=== PATIENT | male | born 2000 | race Caucasian/White ===

== ENCOUNTER 2025-02-25 19:16 | Emergency (ER) | payer OTHER, SELFPAY ==
[2025-02-25 19:32] VITALS: BP 133/84; PULSE 71; RESP 17; TEMP 36.6; O2SAT 99; BMI 23.4
--- NOTE | 2025-02-25 20:00 | CRLHL7_ITS ---
For Patients: As a result of the Century Cures Act, medical imaging exams and procedure reports are released immediately into your electronic medical record. You may view this report before your referring provider. If you have questions, please contact your health care provider. INDICATION: Neck pain. Trauma. TECHNIQUE: Non-contrast axial CT of the cervical spine with coronal and sagittal reconstructions. No comparisons. FINDINGS: The overall stature and alignment of the cervical spine is within normal limits. Prevertebral soft tissues, cervical airway, dens and lateral masses are within normal limits. No evidence of bony fragments narrowing the central canal or visualized neural foramina. Central canal and neural foramina appear patent throughout the visualized cervical spine. IMPRESSION: No radiographic evidence of acute osseous injury. Please note that all CT scans at this facility use dose modulation, iterative reconstruction, and/or weight-based dosing when appropriate to reduce radiation dose to as low as reasonably achievable. Dictated by Chip Pace MD @ 02/25/2025 8:29:10 PM (Electronically Signed)
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
--- OUTSIDE RECORDS SUMMARY | 2025-02-25 21:03 | XMS_ITS | Clinical Summary ---
Author Organization [facility] Address [address] [place] [address] Care Team Providers Care Library Page Name Role Phone Dwayne Abdullahi MD Primary Care Provider [phone] Source Comments This disclosure is being made pursuant to the [employer] program and maynot contain all information available regarding this patient.[facility] Allergies No known active allergies Medications certavite w/antioxidants TABS Take 1 tablet by mouth daily. Active Cholecalciferol (VITAMIN D-3 PO) Take 1 capsule by mouth daily. Active Amino Acid Infusion (AMINO ACID IV) Inject 1 capsule into the vein daily. Active Active Problems Problem Noted Date Diagnosed Date Attention deficit hyperactivity disorder (ADHD) 08/23/2024 Beta-thalassemia 09/08/2021 Overactive child 09/08/2021 Encounters Date Type Department Care Team Description 12/11/2024 12:50 PM CDT - 12/11/2024 11:59 PM CDT Hospital Encounter [facility] [address], [phone] Encounter for drug screening Discharge Disposition: Home - Discharge to Home or Self Care 12/11/2024 Transcribe Orders [facility] [address] [place] [address], [phone] Dwayne Abdullahi MD Encounter for drug screening (Primary Dx) 11/30/2024 Results Follow-Up [facility] [place] [address] [place] [id number] Josue Conway MD CBC and differential, Lipid panel, Hepatitis C antibody, Additional followed-up results: 2 11/28/2024 9:13 AM CDT - 11/28/2024 11:59 PM CDT Hospital Encounter [facility] [address] [place] [address], [phone] Beta thalassemia trait; Lipid screening; Need for hepatitis C screening test; Other fatigue Discharge Disposition: Home - Discharge to Home or Self Care 11/28/2024 8:15 AM CDT Clinical Support [facility] [address] [place] [address] Gloria Turk RN Screening due (Primary Dx) 11/27/2024 Travel from Last 3 Months Immunizations Immunization Administration Dates Next Due DTaP, unspecified formulation 02/08/2007 ,06/15/2004,05/15/2003,08/10,2002 Hepatitis A, unspecified formulation 09/11/2005, 02/18/2005 Hepatitis B, unspecified formulation 02/16/2003, 2002,2002 HiB PRP-T 02/16/2006,05/15/2003,2002 Human Papillomavirus, Unspec ified Formulation 04/07/2016,12/05/2015,10/01/2015 Influenza, inactivated, quad rivalent, ALL AGES 6 months and older, single dose syringe/vial 04/24/2019 LIVE Fnfiern-Xkgml-Wbjnbdm ( M-M-R II) MMR 02/08/2007,02/16/2003 LIVE Varicella (Varivax) JEANETTE 12/21/2007,02/17/20 03 Meningococcal Conjugate (Men actra) MCV4 MenACWY-D 03/08/2018,02/13/2014 Pneumococcal Conjugate-13 (P revnar 13) PCV13 01/30/2005 Polio (Ipol) IPV 02/08/2007,2002, 2 Tdap 02/13/2014 Tetanus and Diphtheria (Tenivac) Td 05/28/2022 Family History Medical History Relation Name Comments Thyroid disease Father beta thalessemia trait Father Heart disease Maternal Grandfather Melanoma Maternal Grandmother Thyroid disease Paternal Grandmother beta thalassemia trait Paternal Grandmother Relation Name Status Comments Father Maternal Grandfather Maternal Grandmother Paternal Grandmother Social History Tobacco Use Types Packs/Day Years Used Date Smoking Tobacco: Never Smokeless Tobacco: Never Tobacco Cessation:Counseling Given: Yes Alcohol Use Standard Drinks/Week Comments Yes 2 (1 standard drink = 0.6 oz pur e alcohol) PHQ-2 Answer Date Recorded PHQ-2 Total Score 0 11/24/2024 Exercise Vital Sign Answer Date Recorde d On average, how many days pe r week do you engage in moderate to strenuous exercise (like a brisk walk)? 7 days 11/24/2024 On average, how many minutes do you engage in exercise at this level? 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 Gender Identity Not on file Sexual Orientation Not on file Last Filed Vital Signs Vital Sign Reading Time Taken Comments Blood Pressure 120/72 11/24/2024 1:12 PM CDT Pulse 64 11/24/2024 1:12 PM CDT Temperature 36.6 C (97.8 F) 11/24/2024 1:12 PM CDT Respiratory Rate 18 11/24/2024 1:12 PM CDT Oxygen Saturation 98% 11/24/2024 1:12 PM CDT Inhaled Oxygen Concentration - - Weight 63.7 kg (140 lb 6.4 oz) 11/24/2024 1:12 P M CDT Height 177.8 cm (5' 10) 11/24/2024 1:12 PM CDT Body Mass Index 20.15 11/24/2024 1:12 PM CDT Plan of Treatment Health Maintenance Due Date Last Done Comments Pneumococcal Vaccines 0-49 yo (2 of 3 - PPSV23, PCV20, or PCV21) 03/27/2005 01/30/2005 Meningococcal B Vaccine (1 of 4 - Increased Risk) 02/11/2012 Meningococcal Conjugate Vaccine (3 - Risk 2-dose series) 03/08/2023 03/08/2018, 02/13/2014 COVID-19 Vaccine (1 - season) 2024 Influenza Vaccine (#1) 2025 04/24/2019 Annual Wellness Visit 11/24/2025 11/24/2024 Lab-Cholesterol Screening 11/28/2029 11/28/2024 Tetanus/Pertussis Vaccine Teen/Adult (8 - Td or Tdap) 05/28/2032 05/28/2022, 02/13/2014, 02/08/2007, Additional history exists Zoster (Shingles) Vaccine 50+ (1 of 2) 02/11/2052 RSV Adult (1 - 1-dose 75+ series) 2077 Hepatitis B Vaccine Completed 02/16/2003, 2002, 2002 Hepatitis A Vaccine Completed 09/11/2005, HIB Vaccine Completed 02/16/2006, 04/28, 2002 IPV Vaccine Completed 02/08/2007, 07/29, 2002 HPV Vaccine (9-26yo & Shared Decision 27-45yo) Completed 04/07/2016, 12/05/2015, 10/01/2015 Lab-Hepatitis C Screening Completed 11/28/2024 RSV < 20 Months Aged Out No longer el igible based on patient's age to complete this topic Medical Devices Implanted Type Area Care Center Manager Device Identifier Shelf Expiration Date Model / Serial / Lot Novostitch Pro Meniscal Repair System 2-0 Implanted:Qty: 1 on 12/23/2018 by Will Barreto, DO at [facility] - BLANK Right: Knee 10/16/2020 CTX-A003 / / [id number] Novostitch Meniscal Repair Cartridge 2-0 Implanted:Qty: 2 on 12/23/2018 by Will Barreto, DO at [facility] - BLANK Right: Knee 10/15/2020 CTX-R001 / / [id number] Sys Mnscl Rep F-Fix 360 Crv - [id number] Implanted:Qty: 1 on 12/23/2018 by Will Barreto, DO at [facility] - BLANK Right: Knee [employer] \[employer]\ [employer] 12/10/2020 [id number] / / [id number] Sys Mnscl Rep F-Fix 360 Crv - [id number] Implanted:Qty: 1 on 12/23/2018 by Will Barreto, DO at [facility] - BLANK Right: Knee [employer] \[employer]\ [employer] 06/08/2020 [id number] / / [id number] Procedures Procedure Name Priority Date/Time Associated Diagnosis Comments DRUGS OF ABUSE SCREEN, URINE Routine 12/11/2024 1:04 PM CDT Encounter for drug screening TSH Routine 11/28/2024 9:09 AM CDT Other fatigue 25 HYDROXY VITAMIN D Routine 11/28/2024 9:09 AM CDT Other fatigue HEPATITIS C ANTIBODY Routine 11/28/2024 9:09 AM CDT Need for hepatitis C screening test LIPID PANEL Routine 11/28/2024 9:09 AM CDT Lipid screening CBC AND DIFFERENTIAL Routine 11/28/2024 9:09 AM CDT Beta thalassemia trait from Last 3 Months Results * (ABNORMAL) Drugs of Abuse Screen Urine (12/11/2024 1:04 PM CDT) [facility] Amphetamines,UR NEG NEG^NEG 1:08 PM T [facility] Comment:(Cutoff is 1000 ng/m L) Cocaine,UR NEG NEG^NEG 12/11/2024 1:08 PM [facility] Comment:(Cutoff is 300 ng/mL ) Oxycodone Screen,UR NEG NEG^NEG 12/11/2024 1:08 PM [facility] Comment:(Cutoff is 100 ng/mL ) Cannabinoids,UR POS(A) NEG^NEG 1:08 PM [facility] Comment:(Cutoff is 50 ng/mL) Phencyclidine,U R NEG NEG^NEG 12/11/2024 1:08 PM [facility] Comment:(Cutoff is 25 ng/mL) MDMA UR NEG NEG^NEG 12/11/2024 1:08 PM [facility] Comment:(Cutoff is 500 ng/mL ) Morphine UR NEG NEG^NEG 12/11/2024 1:08 PM [facility] Comment:(Cutoff is 300 ng/mL ) Benzodiazepines ,UR NEG NEG^NEG 12/11/2024 1:08 PM CDT [facility] Comment:(Cutoff is 300 ng/mL ) Barbiturates,UR NEG NEG^NEG 1:08 PM CDT [facility] Comment:(Cutoff is 300 ng/mL ) Methadone Screen, UR NEG NEG^NEG 12/11/2024 1:08 PM CDT [facility] Comment:(Cutoff is 300 ng/mL ) Methamphetamine s, UR NEG NEG^NEG 12/11/2024 1:08 PM CDT [facility] Comment:(Cutoff is 1000 ng/m L) Tricyclics UR NEG NEG^NEG 12/11/2024 1:08 PM CDT [facility] Comment: (Cutoff is 1000 ng/mL) Test performed at [facility], [address] [place] [address] Urine URINE SPECIMEN FROM URINARY BLADDER / Unknown 12/11/2024 1:04 PM CDT 12/11/2024 1:05 PM CDT us Dwayne Abdullahi MD URINE ORDERABLES Final Result Performing Organization Address City/[facility]/ZIP Co de Phone Number [facility], [place] [address] * Hepatitis C antibody (11/28/2024 9:09 AM CDT) Hep C Ab NEG NEG^NEG 11/28/2024 6:34 PM CDT [facility] Comment: Negative Test performed at [facility], [address] [place] [address], [place] [address] Blood 11/28/2024 9:09 AM CDT 11/28/2024 9:14 AM CDT us Josue Conway MD LAB BLOOD ORDERABLES Final Resul t [facility], [facility] [address], [place] [address] * 25 Hydroxy Vitamin D (11/28/2024 9:09 AM CDT) Vitamin D, 25-Hydroxy 63 30 - 100 ng/mL 11/28/2024 6:33 PM [facility] Comment:Test performed at [facility], [address] [place] [address], [place] [address] Serum 11/28/2024 9:09 AM CDT 11/28/2024 9:14 AM CDT us Josue Conway MD LAB BLOOD ORDERABLES Final Resul t [facility], [facility] [address] [place] [address], [place] [address] * (ABNORMAL) CBC and differential (11/28/2024 9:09 AM CDT) Pathologist [facility] WBC 5.25 4.00 - 11.00 10*3/uL 11/28/2024 5:56 PM [facility] RBC 6.29(H) 4.50 - 6.00 10*6/uL 11/28/2024 5:56 PM [facility] HGB 12.2(L) 13.5 - 18.0 g/dL 11/28/2024 5:56 PM [facility] HCT 39.7(L) 40.0 - 54.0 % 11/28/2024 5:56 PM [facility] MCV 63.1(L) 80.0 - 96.0 fL 11/28/2024 5:56 PM [facility] MCH 19.4(L) 27.0 - 32.0 pg 11/28/2024 5:56 PM [facility] MCHC 30.7(L) 31.0 - 37.0 g/dL 11/28/2024 5:56 PM [facility] Platelets 263 150 - 400 10*3/uL 11/28/2024 5:56 PM [facility] RDW-CV 16.6(H) 11.0 - 16.0 % 11/28/2024 5:56 PM [facility] MPV 11.2 fL 11/28/2024 5:56 PM [facility] Differential Type AUTOMATED DIFFERENTIAL 11/28/2024 5:56 PM [facility] Neutrophil % 57.4 % 11/28/2024 5:56 PM [facility] Lymphocytes % 28.6 % 11/28/2024 5:56 PM [facility] Monocyte % 10.3 % 11/28/2024 5:56 PM [facility] Eosinophils Relative % 2.9 % 11/28/2024 5:56 PM [facility] Basophils % 0.8 % 11/28/2024 5:56 PM [facility] Immature Granulocytes% 0.0 0.00 - 0.10 % 11/28/2024 5:56 PM [facility] Neutrophils Absolute 3.02 2.00 - 7.50 10*3/uL 11/28/2024 5:56 PM [facility] Lymphocytes Absolute 1.50 1.50 - 4.00 10*3/uL 11/28/2024 5:56 PM [facility] Monos Absolute 0.54 0.20 - 1.00 10*3/uL 11/28/2024 5:56 PM [facility] Eosinophils Absolute Count 0.15 0.0 - 0.40 10*3/uL 11/28/2024 5:56 PM [facility] Basophils Absolute 0.04 0.0 - 0.1 10*3/uL 11/28/2024 5:56 PM [facility] Immature Granulocytes Absolute 0.00 10*3/uL 11/28/2024 5:56 PM [facility] Comment:Test performed at [facility], [address] [place] [address], [place] [address] Whole Blood BLOOD SPECIMEN / Unknown 11/28/2024 9:09 AM CDT 11/28/2024 9:14 AM CDT us Josue Conway MD LAB BLOOD ORDERABLES Final Resul t [facility], [facility] [address] [place] [address], [place] [address] * TSH (11/28/2024 9:09 AM CDT) TSH 1.77 0.34 - 6.00 m[IU]/L 11/28/2024 6:33 PM [facility] Comment:Test performed at [facility], [address] [place] [address], [place] [address] Serum BLOOD SPECIMEN / Unknown 11/28/2024 9:09 AM CDT 11/28/2024 9:14 AM CDT us Josue Conway MD LAB BLOOD ORDERABLES Final Resul t Performing Organization Address [facility] Co de Phone Number [facility], [facility] [address] [place] [address] * Lipid panel (11/28/2024 9:09 AM CDT) Cholesterol 122 100 - 200 mg/dL 11/28/2024 6:33 PM [facility] Triglycerides 142 30 - 150 mg/dL 11/28/2024 6:33 PM [facility] HDL Cholesterol 48 35 - 60 mg/dL 11/28/2024 6:33 PM [facility] LDL, Calculated 46 0 - 99 mg/dL 11/28/2024 6:33 PM [facility] Cholesterol/HDL Ratio 2.5 2.0 - 5.0 11/28/2024 6:33 PM [facility] Comment:Test performed at [facility], [address] [place] [address] Serum 11/28/2024 9:09 AM CDT 11/28/2024 9:14 AM CDT us Josue Conway MD LAB BLOOD ORDERABLES Final Resul t Performing Organization Address [facility] Co de Phone Number [facility] [place] [facility] [address] [place] [address] from Last 3 Months Insurance [facility] [id number] Care Teams Library Page Relationship Specialty Start Date End Date Dwayne Abdullahi MD [address] [place] [address], [place] [address] PCP - General Family Medicine 09/03/22
--- OUTSIDE RECORDS SUMMARY | 2025-02-25 21:03 | XMS_ITS | Encounter Summary ---
Author Organization [employer] Address [address] [place] [address] Care Team Providers Care Assignment Desk Assistant Name Role Phone Dwayne Abdullahi MD Primary Care Provider [phone] Encounter Details Date Type Department Care Team ([facility] Contact Info) Description 11/30/2024 Results Follow-Up [facility] [place] [address] [place] [address] Josue Conway MD [address] [place] [address] CBC and differential, Lipid panel, Hepatitis C antibody, Additional followed-up results: 2 Social History Tobacco Use Types Packs/Day Years Used Date Smoking Tobacco: Never Smokeless Tobacco: Never Alcohol Use Standard Drinks/Week Comments Yes 2 [...] on file 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
== END 2025-02-25 21:05 | disposition home or self-care (01) ==
LOC: ED 21:02
PROVIDERS: Emergency Provider Student in an Organized Health Care Education/Training Program
DX: S16.1XXA Strain of muscle, fascia and tendon at neck level, initial encounter (principal); V91.83XA Other injury due to other accident to other powered watercraft, initial encounter
CPT/HCPCS: 72125; 99283; 99284